=== PATIENT | female | born 1960 | race Caucasian/White ===

== ENCOUNTER → 2019-08-10 14:00 | Outpatient (CLI) | payer SELFPAY ==
[2019-08-10 17:38] LABS: Absolute Lymphocyte Count 2.52 X10^3/uL (0.83-4.51); Absolute Neutrophil Count 2.6 X10^3/uL (2.0-7.7); Basophil# 0.03 X10^3/uL; Basophil% 0.5 % (0-1); Eosinophil# 0.02 X10^3/uL; Eosinophils% 0.3 % (0-5); Hematocrit 42.9 % (37-47); Lymphocyte # 2.52 X10^3/ul (4.0); Lymphocyte % 43.5 % (19-41); Mean Corp Hgb Conc 32.6 g/dL (32-36); Mean Corpuscular Hgb 29.7 pg (27.0-32.0); Mean Corpuscular Volume 91.1 fL (81-99); Mean Platelet Vol. 9.5 fl (6.2-12.0); Monocyte# 0.59 X10^3/uL; Monocyte% 10.2 % (0-10); NRBC Flagged by Analyzer 0 % (0-5); Neutrophil # 2.62 X10^3/uL (2.7-7.7); Neutrophil % 45.3 % (47-70); Platelet Count 280 K/mm3 (150-450); RBC Distribution Width CV 13.2 % (11.6-14.6); RBC Distribution Width SD 43.6 fl (35.1-43.9); Red Blood Count 4.71 M/mm3 (4.2-5.4); White Blood Count 5.8 K/mm3 (4.4-11.0)
[2019-08-10 17:52] LABS: ALB/GLOB Ratio 1.2 RATIO (0.9-2.4); AST(SGOT) 14 U/L (15-37); Alanine Aminotransfer ALT/SGPT 22 U/L (13-56); Albumin, Serum 4.5 g/dL (3.2-5.0); Alkaline Phosphatase 55 U/L (45-117); Anion Gap 8 (5-15); BUN 13 mg/dL (7-18); BUN/Creat Ratio 14.1 RATIO (10-20); Calcium,Total 9.3 mg/dL (8.5-10.1); Chloride 102 mmol/L (98-107); Creatinine, Serum 0.92 mg/dL (0.55-1.02); EST Glomerular Filtration Rate 67 mL/min (>60); Est Glom Filt Rate - Afr Amer 81 mL/min (>60); Globulin 3.9 g/dL (2.2-4.2); Glucose 84 mg/dL (74-106); Potassium 3.3 mmol/L (3.5-5.1); Protein, Total 8.4 g/dL (6.4-8.2); Rheumatoid Factor < 10.0 IU/mL (<15); Sodium Level 139 mmol/L (136-145)
[2019-08-13 09:30] LABS: Hepatitis B Surface Antibody Non-Reactive; Hepatitis B Surface Antigen Non-Reactive (Nonreactive); Hepatitis C Antibody Non-Reactive (Nonreactive)
[2019-08-13 14:54] LABS: ANTINUCLEAR ANTIBODIES DIRECT Negative (Negative)
[2019-08-14 04:51] LABS: CCP IgG Antibodies 7 units (0-19)
== END ==
PROVIDERS: PCP Internal Medicine; Referring Provider Internal Medicine Rheumatology; Visit Provider Internal Medicine Rheumatology
DX: M06.4 Inflammatory polyarthropathy (principal); M47.892 Other spondylosis, cervical region; R51 Headache
CPT/HCPCS: 36415; 80053; 85025; 86038; 86200; 86431; 86706; 86803; 87340

== ENCOUNTER → 2019-11-14 08:43 | Outpatient (CLI) | payer SELFPAY ==
[2019-11-14 10:04] LABS: Absolute Neutrophil Count 6.1 X10^3/uL (2.0-7.7); Basophil# 0.04 X10^3/uL; Basophil% 0.4 % (0-1); Eosinophil# 0.06 X10^3/uL; Eosinophils% 0.6 % (0-5); Hematocrit 42.9 % (37-47); Hemoglobin 13.7 g/dL (12.0-15.0); Lymphocyte % 30.4 % (19-41); Mean Corp Hgb Conc 31.9 g/dL (32-36); Mean Corpuscular Hgb 28.8 pg (27.0-32.0); Mean Corpuscular Volume 90.1 fL (81-99); Mean Platelet Vol. 9.3 fl (6.2-12.0); Monocyte# 0.67 X10^3/uL; Monocyte% 6.8 % (0-10); NRBC Flagged by Analyzer 0 % (0-5); Neutrophil # 6.05 X10^3/uL (2.7-7.7); Neutrophil % 61.4 % (47-70); Platelet Count 293 K/mm3 (150-450); RBC Distribution Width CV 12.7 % (11.6-14.6); RBC Distribution Width SD 42.4 fl (35.1-43.9); Red Blood Count 4.76 M/mm3 (4.2-5.4); White Blood Count 9.9 K/mm3 (4.4-11.0)
[2019-11-14 10:10] LABS: ALB/GLOB Ratio 1.2 RATIO (0.9-2.4); AST(SGOT) 11 U/L (15-37); Alanine Aminotransfer ALT/SGPT 17 U/L (13-56); Alkaline Phosphatase 37 U/L (45-117); Anion Gap 3 (5-15); BUN 19 mg/dL (7-18); BUN/Creat Ratio 19.2 RATIO (10-20); Calcium,Total 8.9 mg/dL (8.5-10.1); Chloride 104 mmol/L (98-107); Creatinine, Serum 0.99 mg/dL (0.55-1.02); EST Glomerular Filtration Rate 62 mL/min (>60); Est Glom Filt Rate - Afr Amer 75 mL/min (>60); Globulin 3.3 g/dL (2.2-4.2); Glucose 79 mg/dL (74-106); Potassium 3.5 mmol/L (3.5-5.1); Protein, Total 7.3 g/dL (6.4-8.2); Sodium Level 139 mmol/L (136-145)
== END ==
PROVIDERS: PCP Internal Medicine; Referring Provider Internal Medicine Rheumatology; Visit Provider Internal Medicine Rheumatology
DX: M06.4 Inflammatory polyarthropathy (principal); M47.892 Other spondylosis, cervical region; R51 Headache
CPT/HCPCS: 36415; 80053; 85025

== ENCOUNTER → 2022-02-19 | Outpatient (CLI) | payer SELFPAY ==
[2022-02-19 16:20] LABS: Bacteria 0 SEEN /hpf (None Seen); Mucous, Urine 0 SEEN /hpf (<or=2+); Red Blood Cells-Urine 0 SEEN /hpf (0-5); Squamous Epithelial Cells - UA 0 SEEN /hpf (5-10); White Blood Cells 0 SEEN /hpf (0-5)
[2022-02-19 16:41] LABS: Color, Urine Yellow (Yellow); Glucose, Dipstick Normal (Normal); Ketone-Dipstick 15 mg/dl (Negative); Leukocyte Esterase-Dipstick Negative /ul (Negative); Nitrite-Dipstick Negative (Negative); Occult Blood-Urine Negative /ul (Negative); Protein-Dipstick Negative (Negative); Urine Bilirubin Dipstick Negative (Negative); Urine Clarity Clear (Clear); Urine Urobilinogen Normal (Normal)
== END | disposition home or self-care (01) ==
PROVIDERS: PCP Internal Medicine; Visit Provider Physician Assistant
DX: R30.0 Dysuria (principal)
CPT/HCPCS: 81001; 87086; 87088

== ENCOUNTER 2022-02-21 07:49 | Inpatient (IN) | payer OTHER, SELFPAY ==
[2022-02-21] VITALS (20 sets, daily range): BP systolic 80–121; BP diastolic 24–86; PULSE 75–104; RESP 14–21; TEMP 35.1–37.6; O2SAT 95–100; BMI 20.3
--- NOTE | 2022-02-21 08:03 | CT_ITS ---
STUDY: CT ABDOMEN AND PELVIS WITH CONTRAST REASON FOR EXAM: Female, 61 years old. Abdominal pain RADIATION DOSAGE (If Supplied By Facility): CTDIvol = ( 11.20 ) mGy, DLP = ( 428.30 ) mGycm TECHNIQUE: Transaxial images were obtained from the dome of the diaphragm to the symphysis pubis without oral contrast. IV 75mL Isovue-370 was administered. Sagittal and coronal images were reconstructed. Individualized dose optimization techniques were used for this CT. COMPARISON: None. FINDINGS: The visualized lung bases are unremarkable. The visualized portions of the heart are within normal limits. Hypoattenuated focus within the right hepatic lobe, too small to characterize. Normal gallbladder and extrahepatic biliary system. Normal spleen. Normal pancreas. Normal bilateral adrenal glands. Normal right kidney. Normal left kidney. Normal bilateral ureters. Normal visualized stomach. There are multiple small bowel loops which courses through the mid pelvic cavity which demonstrate callosal wall thickening. There is moderate diffuse diverticular disease of the sigmoid colon with marked associated long segment concentric mucosal wall thickening. There is a collection of extraluminal gas in the left mid hemipelvis medial to the inflamed sigmoid segment. There is extensive inflammatory stranding of mesenteric fat throughout the mid left pelvic cavity. There are associated small foci of extraluminal gas seen in the left subphrenic region, in the paulino hepatis, and in the hiatus. There is a small amount of free fluid in the right posterior pelvic cul-de-sac. Normal abdominal aorta. Normal inferior vena cava. Normal retroperitoneum. Normal urinary bladder. Reproductive structures are unremarkable. Normal abdominal wall. Mild multilevel degenerative change of the spine. CT/Abdomen/Pelvis W IV Cont ONLY IMPRESSION: 1. Perforated acute sigmoid colonic diverticulitis with associated secondary long segment mucosal wall edema of several small bowel loops which course through the mid pelvic cavity. 2. Additional foci of free intraperitoneal air seen throughout the left upper quadrant and within the paulino hepatis and hiatus. 3. Small amount of free fluid in the posterior pelvic cul-de-sac. 4. Hypoattenuated lesion in the right hepatic lobe which is too small to characterize but which likely represents a cyst versus hemangioma. Electronically Signed: Callum Ribeiro MD at 8:50 EST ,
--- NOTE | 2022-02-21 08:04 | ED.VIS.GI ---
HPI HPI - GI History of Present Illness Chief Complaint: Abd Pain Detail of Chief Complaint: Abdominal pain x1 week Informant: patient Narrative Narrative: Patient presents to the emergency department complaint of abdominal pain for a week. Patient states the pains been somewhat intermittent. She was seen couple days ago at urgent care and told she might be dehydrated after they checked a urine sample. Patient today drink some soda and on the way to the hospital vomited x1. She denies diarrhea. She denies blood in her stool or black tarry stool. Patient rates her pain an 8 out of 10 and the pain is in the lower abdomen. Patient tells me she has no medical history no prior abdominal surgeries. Prior similar symptoms: No PFSH PFSH Medical History (Updated 02/21/22 @ 09:[address] Jose Juan Butcher, ) Abdominal pain Medical History no medical history Home Medications NK 02/19/22 [History Last Taken Unknown] Allergy/AdvReac Type Severity Reaction Status Date / Time No Known Allergies Allergy Unverified 02/21/22 07:49 Surgical History no surgical history Social History Smoking Status: Never smoker ROS ROS ED Review of Systems ROS Unobtainable: other Constitutional Constitutional ED: Reports lethargy; Denies chills, fever(s), sweats or weight loss Eyes Eyes: Denies blurry vision, change in vision or diplopia ENT ENT ED: Denies rhinorrhea or sore throat Cardiovascular Cardiovascular: Denies chest pain, orthopnea or racing heartbeat Respiratory/Chest Respiratory/Chest: Denies cough, dyspnea, dyspnea on exertion, orthopnea or sputum Gastrointestinal Gastrointestinal: Reports abdominal pain, nausea and vomiting; Denies diarrhea Genitourinary Genitourinary ED: Denies dysuria, hematuria or urinary frequency Musculoskeletal Musculoskeletal: Denies arthralgias, back pain, myalgias or neck pain Integumentary Denies abscess, Abrasions or rash Neurologic Neurologic: Denies headache(s) or weakness Psychiatric Psychiatric: Denies anxiety, depression or suicidal thoughts Endocrine Endocrinology: Denies polydipsia, polyphagia or polyuria Hematologic/Lymphatic Hematologic/Lymphatic: Denies easy bleeding, easy bruising or lymphadenopathy Allergic/Immunologic Allergic/Immunologic ED: Denies mouth swelling, tongue swelling or urticaria EXAM Physical Exam Const Vital Signs: 02/21/22 07:50 02/21/22 08:10 02/21/22 08:36 Temperature 95.1 F L Temperature Source Temporal Pulse Rate 80 75 103 H Respiratory Rate 16 21 H 18 Blood Pressure 84/24 L 80/56 L 99/73 Blood Pressure Mean 44 64 81 Pulse Ox 100 100 98 Oxygen Delivery Method Room Air Room Air 02/21/22 08:39 02/21/22 08:40 02/21/22 08:46 Temperature 98.2 F Temperature Source Oral Pulse Rate 91 Respiratory Rate 20 H Blood Pressure 110/78 102/65 Blood Pressure Mean 88 77 Pulse Ox 100 Oxygen Delivery Method 02/21/22 08:52 Temperature Temperature Source Pulse Rate 99 Respiratory Rate 19 H Blood Pressure 114/62 Blood Pressure Mean 79 Pulse Ox 99 Oxygen Delivery Method Positive well nourished and well developed General Appearance ED: well developed and NAD HEENT Reports TM's clear and moist mucous membranes normocephalic and atraumatic; Negative for trauma or tenderness Tympanic Membrane ED: Yes TM's clear Eyes PERRL and EOMs intact bilaterally General Eye ED: Negative for pale conjunctiva or scleral icterus Neck no lymphadenopathy, supple and no JVD General: Negative for tenderness Chest Wall inspection of chest normal and palpation of chest normal Chest: Negative for tenderness Resp normal respiratory effort and clear to auscultation bilaterally Effort and Inspection: Negative for respiratory distress or pain with movement Auscultation: Negative for rhonchi, wheezes or diminished lung sounds Cardio regular rate, regular rhythm, S1 normal heart sound, S2 normal heart sound and no murmurs Peripheral Pulses: pulses 2+ throughout GI normal to inspection, nondistended, normoactive bowel sounds, soft to palpation, non-distended and no masses GI Narrative: Patient with diffuse tenderness palpation over the lower abdomen right lower quadrant and left lower quadrant. Patient has guarding. Patient has positive rebound. No rigidity noted. Exam consistent with acute abdomen. Back/Spine no CVA tenderness and no thoracic nor lumbar tenderness Extremity normal to inspection General Extremety ED: Negative for edema General Extremity: Negative for edema Neuro oriented x3, CN's II-XII intact bilaterally, no sensory deficits noted and gait normal Sensorium / Orientation: awake, alert, oriented to person, oriented to place and oriented to time Motor Exam: strength 5/5 throughout and strength abnormal Psych mental status grossly normal Skin no rashes or lesions noted and no wounds MDM MDM MDM Narrative Medical decision making narrative: IV line established on arrival. Patient was ordered a liter mostly of fluid bolus. I immediately ordered a CT scan of the abdomen and pelvis with IV contrast. On my initial interpretation it appears that patient has inflammatory changes to the left side of the descending colon with suspected perforation of the bowel. Patient was started on Zosyn. I did discuss case with general surgeon on-call who also reviewed the CT scan. We will continue with fluid boluses as her blood pressure is marginal. Patient will likely require OR intervention. Patient tells me that she has had diverticulitis in the past. Lab work-up consistent with an elevated white count of 13.3. Chemistries unremarkable. Lactate still pending. Radiology agreed with CT interpretation and they note acute diverticulitis with perforated bowel and bowel wall edema. Case was once again discussed with general surgeon on-call Dr. Indra Villar who will evaluate patient in the ER for surgical intervention. Lab Data Attestation: I reviewed the patient's lab results. Labs: Laboratory Results - last 24 hr 02/21/22 02/21/22 02/21/22 08:00 08:00 08:00 WBC 13.3 H RBC 4.16 L Hgb 12.1 Hct 36.8 L MCV 88.5 MCH 29.1 MCHC 32.9 RDW Std Deviation 40.3 RDW Coeff of Jocelin 12.4 Plt Count 327 MPV 9.4 Immature Gran % (Auto) 0.900 Neut % (Auto) 76.9 H Lymph % (Auto) 11.8 L [place] % (Auto) 10.2 H Eos % (Auto) 0.0 Baso % (Auto) 0.2 Absolute Neuts (auto) 10.2 H Absolute Lymphs (auto) 1.56 Nucleated RBC % 0 Sodium 133 L Potassium 3.5 Chloride 99 Carbon Dioxide 25.0 Anion Gap 9 BUN 11 Creatinine 0.93 Estim Creat Clear Calc 57.13 Est GFR (MDRD) Af Amer 79 Est GFR (MDRD) Non-Af 65 BUN/Creatinine Ratio 11.8 Glucose 127 H Lactic Acid 1.2 Calcium 8.5 Total Bilirubin 0.90 AST 11 L ALT 15 Alkaline Phosphatase 53 Total Protein 7.3 Albumin 3.5 Globulin 3.8 Albumin/Globulin Ratio 0.9 Radiography Diagnostic Testing: Clinical Impression(s) from Imaging Studies Abdomen/Pelvis CT 02/21/22 08:03 IMPRESSION: 1. Perforated acute sigmoid colonic diverticulitis with associated secondary long segment mucosal wall edema of several small bowel loops which course through the mid pelvic cavity. 2. Additional foci of free intraperitoneal air seen throughout the left upper quadrant and within the paulino hepatis and hiatus. 3. Small amount of free fluid in the posterior pelvic cul-de-sac. 4. Hypoattenuated lesion in the right hepatic lobe which is too small to characterize but which likely represents a cyst versus hemangioma. Electronically Signed: Callum Ribeiro MD at 8:50 EST , EKG Initial EKG: Attestation: I personally reviewed and interpreted this EKG as follows: Comments: Sinus rhythm with nonspecific ST changes with a rate of 102 bpm Discharge Plan Dx/Rx/DC Orders Clinical Impression: Abdominal pain, Acute diverticulitis, Bowel perforation, Acute hypotension, Leukocytosis Disposition Disposition: Acute Care Hospital [facility]
[2022-02-21] MEDS: Ondansetron 4 MG/2 ML Vial IV (08:08)
[2022-02-21] MEDS: 0.9% Normal Saline 1,000 ML 1000 ML IV (08:09)
[2022-02-21] MEDS: fentaNYL 100 MCG/2 ML Ampul 50 MCG IV (08:09)
[2022-02-21 08:16] LABS: Absolute Lymphocyte Count 1.56 X10^3/uL (0.83-4.51); Absolute Neutrophil Count 10.2 X10^3/uL (2.0-7.7); Basophil# 0.02 X10^3/uL; Basophil% 0.2 % (0-1); Hematocrit 36.8 % (37-47); Hemoglobin 12.1 g/dL (12.0-15.0); Lymphocyte # 1.56 X10^3/ul (0.83-4.51); Lymphocyte % 11.8 % (19-41); Mean Corp Hgb Conc 32.9 g/dL (32-36); Mean Corpuscular Hgb 29.1 pg (27.0-32.0); Mean Corpuscular Volume 88.5 fL (81-99); Mean Platelet Vol. 9.4 fl (6.2-12.0); Monocyte# 1.36 X10^3/uL; Monocyte% 10.2 % (0-10); NRBC Flagged by Analyzer 0 % (0-5); Neutrophil # 10.21 X10^3/uL (2.7-7.7); Neutrophil % 76.9 % (47-70); Platelet Count 327 K/mm3 (150-450); RBC Distribution Width CV 12.4 % (11.6-14.6); RBC Distribution Width SD 40.3 fl (35.1-43.9); Red Blood Count 4.16 M/mm3 (4.2-5.4); White Blood Count 13.3 K/mm3 (4.4-11.0)
[2022-02-21 08:29] LABS: ALB/GLOB Ratio 0.9 RATIO (0.9-2.4); AST(SGOT) 11 U/L (15-37); Alanine Aminotransfer ALT/SGPT 15 U/L (13-56); Albumin, Serum 3.5 g/dL (3.2-5.0); Alkaline Phosphatase 53 U/L (45-117); Anion Gap 9 (5-15); BUN 11 mg/dL (7-18); BUN/Creat Ratio 11.8 RATIO (10-20); Calcium,Total 8.5 mg/dL (8.5-10.1); Chloride 99 mmol/L (98-107); Creatinine, Serum 0.93 mg/dL (0.55-1.02); EST Glomerular Filtration Rate 65 mL/min (>60); Est Glom Filt Rate - Afr Amer 79 mL/min (>60); Estimated Creatinine Clearance 57.13 ml/min; Globulin 3.8 g/dL (2.2-4.2); Glucose 127 mg/dL (74-106); Potassium 3.5 mmol/L (3.5-5.1); Protein, Total 7.3 g/dL (6.4-8.2); Sodium Level 133 mmol/L (136-145)
[2022-02-21 08:35] LABS: Lactic Acid 1.2 mmol/L (0.4-1.9)
--- NOTE | 2022-02-21 08:39 | EKG12_ITS ---
Test Reason : abdominal pain Blood Pressure : / mmHG Vent. Rate : 102 BPM Atrial Rate : 102 BPM P-R Int : 164 ms QRS Dur : 080 ms QT Int : 348 ms P-R-T Axes : 083 088 -09 degrees QTc Int : 453 ms Sinus tachycardia Nonspecific ST and T wave abnormality Abnormal ECG Confirmed by CASSIA SMITH, ELSIE ([id number]), photo editor JOSIE PANG ([id number]) on 02/23/2022 1:10:24 PM Referred By: Confirmed By:ELSIE ANTONY MD
--- NOTE | 2022-02-21 08:44 | NURSING ---
NO OLD EKGS
[2022-02-21] MEDS: HYDROmorphone 0.5 MG/0.5 ML SYRINGE IV (08:51)
[2022-02-21] MEDS: 0.9% Normal Saline 1,000 ML 999 ML IV (08:51)
--- NOTE | 2022-02-21 09:16 | NURSING ---
MED SURG AFTER SURGERY [facility] [place] PAIN, ACUTE DIVERTICULITIS, BOWEL PERFORATIOH, HYPOTENSION
--- NOTE | 2022-02-21 09:20 | HP.PCM.SX_ITS ---
HPI - General HPI Narrative HELGA ALMANZA, is a 61 F who presents with abdominal pain. The patient reports the abdominal pain has been going on for several days. Patient says that she did have some chills and possible fever today and did vomit. She has had diverticulitis in the past. Her last colonoscopy was 9 years ago was normal. Patient states pain is in the lower abdomen and does not radiate. PFSH Medical History no medical history Home Medications NK 02/19/22 [History Last Taken Unknown] Allergy/AdvReac Type Severity Reaction Status Date / Time No Known Allergies Allergy Unverified 02/21/22 07:49 Surgical History no surgical history Social History Smoking Status: Never smoker ROS Constitutional Constitutional: Reports anorexia, chills and fever(s); Denies fatigue or headache(s) Eyes Eyes: Denies blurry vision ENT HEENT: Denies abnormal hearing Cardiovascular Cardiovascular: Denies chest pain Respiratory/Chest Respiratory/Chest: Denies cough or dyspnea Gastrointestinal Gastrointestinal: Reports abdominal pain, diarrhea, nausea and vomiting; Denies hematemesis, hematochezia or melena Genitourinary Genitourinary: Denies change in urinary stream Musculoskeletal Musculoskeletal: Denies abnormal gait Integumentary Integumentary: Denies new lesions Neurologic Neurologic: Denies abnormal gait Psychiatric Psychiatric: Denies anxiety Endocrine Endocrinology: Denies heat intolerance Hematologic/Lymphatic Hematologic/Lymphatic: Denies easy bleeding Vital Signs Vital Signs Vital Signs: 02/21/22 07:50 02/21/22 08:10 02/21/22 08:36 Temperature 95.1 F L Temperature Source Temporal Pulse Rate 80 75 103 H Respiratory Rate 16 21 H 18 Blood Pressure 84/24 L 80/56 L 99/73 Blood Pressure Mean 44 64 81 Pulse Ox 100 100 98 Oxygen Delivery Method Room Air Room Air 02/21/22 08:39 02/21/22 08:40 02/21/22 08:46 Temperature 98.2 F Temperature Source Oral Pulse Rate 91 Respiratory Rate 20 H Blood Pressure 110/78 102/65 Blood Pressure Mean 88 77 Pulse Ox 100 Oxygen Delivery Method 02/21/22 08:52 Temperature Temperature Source Pulse Rate 99 Respiratory Rate 19 H Blood Pressure 114/62 Blood Pressure Mean 79 Pulse Ox 99 Oxygen Delivery Method Weight Weight: 122 lb 8 oz Body Mass Index (BMI) 20.3 Physical Exam Const oriented x3 and no apparent distress Resp normal respiratory effort and clear to auscultation bilaterally Cardio regular rate and regular rhythm GI soft to palpation Inspection: Negative for abdominal distention Palpation: tender LLQ and RLQ Extremity normal to inspection Results Lab / Micro Data Result Diagrams: 02/21/22 08:00 02/21/22 08:00 Labs: Laboratory Results - last 24 hr 02/21/22 08:00: WBC 13.3 H, RBC 4.16 L, Hgb 12.1, Hct 36.8 L, MCV 88.5, MCH 29.1, MCHC 32.9, RDW Std Deviation 40.3, RDW Coeff of Jocelin 12.4, Plt Count 327, MPV 9.4, Immature Gran % (Auto) 0.900, Neut % (Auto) 76.9 H, Lymph % (Auto) 11.8 L, [place] % (Auto) 10.2 H, Eos % (Auto) 0.0, Baso % (Auto) 0.2, Absolute Neuts (auto) 10.2 H, Absolute Lymphs (auto) 1.56, Nucleated RBC % 0 02/21/22 08:00: Sodium 133 L, Potassium 3.5, Chloride 99, Carbon Dioxide 25.0, Anion Gap 9, BUN 11, Creatinine 0.93, Estim Creat Clear Calc 57.13, Est GFR (MDRD) Af Amer 79, Est GFR (MDRD) Non-Af 65, BUN/Creatinine Ratio 11.8, Glucose 127 H, Calcium 8.5, Total Bilirubin 0.90, AST 11 L, ALT 15, Alkaline Phosphatase 53, Total Protein 7.3, Albumin 3.5, Globulin 3.8, Albumin/Globulin Ratio 0.9 02/21/22 08:00: Lactic Acid 1.2 Radiology Impression Abdomen/Pelvis CT 02/21/22 08:03 IMPRESSION: 1. Perforated acute sigmoid colonic diverticulitis with associated secondary long segment mucosal wall edema of several small bowel loops which course through the mid pelvic cavity. 2. Additional foci of free intraperitoneal air seen throughout the left upper quadrant and within the paulino hepatis and hiatus. 3. Small amount of free fluid in the posterior pelvic cul-de-sac. 4. Hypoattenuated lesion in the right hepatic lobe which is too small to characterize but which likely represents a cyst versus hemangioma. Electronically Signed: Callum Ribeiro MD at 8:50 EST , Assessment & Plan Assessment/Plan (1) Diverticulitis of colon with perforation: PLAN: The patient has lower abdominal pain and CT shows diverticulitis of the sigmoid colon with perforation. There is fluid and free air in the abdomen. I discussed this with her in detail. I recommended laparoscopic sigmoid colectomy with possible colostomy. I discussed the risks of the procedure such as bleeding, infection, injury to surrounding organs such as the bowel, bladder, ureter. I also discussed the possibility of having to place a colostomy if anastomosis is not possible. I also discussed the increased risk of anastomotic leak due to no bowel prep or antibiotic prep. Patient understands the risks and consents for laparoscopic possible open sigmoid colectomy with possible colostomy. I will call the OR team and the patient has been given a fluid bolus and started on IV antibiotics. Indra Melendez MD Pager: [facility] [address] [place] [address], [address] [place] [address] Office:
--- NOTE | 2022-02-21 10:25 | COL_PTH ---
PATIENT: HELGA ALMANZA LOC: MS2 U#:[id number] AGE/SX: 61/F ROOM: [id number] RE02/21/[address]: Dr. Indra Melendez MD : 1960 BED: 1 DIS: 02/26/2022 SPEC #: [id number] RECD: 02/23/22 07:26 STATUS: MAYA REVianney #: [id number] ESTRELLA: 02/21/22 10:[address]: Indra Melendez DEPT: SURGICAL PATHOLOGY RECD BY: Xiomara Viveros ENTERED: 02/23/22 09:40 SP TYPE: COLON OTHR DR: MD Dr. Francis Chino DO Dr. Paul Nielsen, MD Tissues: A - Colon, NOS B - Colon Donuts Procedures: Surgery Specimen Level III Surgery Specimen Level V HEADER OPERATION: Laparotomy, sigmoid colectomy PRE-OP DIAGNOSIS: Diverticulitis of colon with perforation TISSUE SUBMITTED: A ? Sigmoid colon (suture alexandre proximal margin), B ? Rectal donuts MICROSCOPIC DIAGNOSIS A. Sigmoid colon, segmental colectomy: Diverticular disease of colon with focal rupture and associated pericolic abscess. Acute serositis. One out of one lymph node with no pathologic change. B. Rectal donuts, excisions: Fragments of colonic mucosa with no pathologic change. See comment. AM:joelle 02/25/2022 COMMENT B. No distinct gross perforation through to the serosal surface is identified. Clinical correlation is suggested. MICROSCOPIC DESCRIPTION Slides are reviewed. GROSS DESCRIPTION A - Received in fixative is one container labeled with the patient's name and designated sigmoid colon. The specimen consists of a segment of bowel measuring 18 cm in length and surrounded by shiny, fibroadipose tissue. No gross perforations are evident. Serial sections reveal multiple diverticula with no distinct gross perforation is identified. Clerical Transcriber sections are submitted in six cassettes as follows: 15 ? diverticula with adjacent tissue, 6 ? presumed lymph node. B - Received in fixative is one container labeled with the patient's name and designated rectal donuts. The specimen consists of two mucosal donuts. One mucosal donut measures 1.5 cm in diameter and 0.8 cm in length. This donut is inked in black ink. No gross lesions are identified. The second mucosal donut measures 1.6 cm in diameter and 1.7 cm in length. No lesions are identified. Clerical Transcriber sections from both donuts are submitted in one cassette. / AM:joelle 02/24/2022 TC:2 CPT: 53025, 26475
[2022-02-21] MEDS: Lactated Ringers 1,000 ML 15 ML IV ×2 (10:45→11:46)
--- NOTE | 2022-02-21 13:23 | PCM.OPRPT ---
Report of Operation Date of Procedure: 02/21/22 Pre-Operative Diagnosis: Perforated sigmoid diverticulitis Post-Operative Diagnosis: Same Surgery/Procedure Performed:: 1. Laparoscopic converted to open sigmoid colectomy with anastomosis 2. Takedown of splenic flexure Specimen's removed: Sigmoid colon with suture alexandre from the proximal margin Description of Procedure: Patient was brought back to the operating room and general anesthesia was induced. Cook catheter was placed and the rectum was irrigated with a saline and Betadine mixture. Next the abdomen and perineal area were prepped and draped in usual sterile fashion. An incision was made superior the umbilicus and deepened the fascia which was elevated and incised. Finger sweep was performed and a port was placed into the abdomen and the abdomen was insufflated 15 mmHg. A 5 mm port was placed under direct visualization just to the right of this and a 12 mm port was placed in the right lower quadrant. Patient was placed in Trendelenburg position. There is purulent drainage in the abdomen which was suctioned. The small bowel was densely adherent to the sigmoid colon and I was unable to visualize what I needed to laparoscopically. Next we converted to open. The midline incision was lengthened inferiorly around the umbilicus and down to the suprapubic area. The fascia was elevated and incised and a wound protector was placed. The abdomen is irrigated and suctioned dry and the small bowel was finger fractured away from the sigmoid colon and retracted superiorly and out of the way. The sigmoid colon was taken down from its lateral attachments and the ureter was identified on the left. It was spared out of the way and then the colon was dissected medially. A window was made in the mesentery and the round stapler was used to take down the sigmoid rectum junction and divided. LigaSure was used to take down the mesentery to the sigmoid colon until the inflamed area was removed and proximal to it the colon was divided using another firing of the curved stapler. The perforation was evident on the sigmoid colon and it was marked proximally with a suture and sent for pathology. Next the abdomen was irrigated and suctioned dry once more. The distal descending colon was unable to reach the pelvis. The lateral attachments to the descending colon and splenic flexure were taken down with electrocautery under direct visualization. The splenic flexure was mobilized. This allowed the descending colon to reach the pelvis with no tension. Next the staple line was taken off of the distal descending colon using scissors and then a sizer was used to size the distal colon. Next a pursestring 0 Prolene suture was used on the distal colon and then the 29 EEA stapler anvil was placed into the distal colon and the pursestring was tied tight. Next serial dilators were used in the rectal area and then the 29 EEA stapler was placed through the anus and into the rectum and then the stapler point was brought out of the anterior rectum. The distal descending colon was attached to the stapler point and it was closed and fired. The stapler was then loosened and removed. The pelvis was filled with fluid and then a leak test was performed. There was no air leak. There was an area of solid mucosal edge on the anterior edge of the anastomosis. This area was imbricated using interrupted 3-0 silk sutures. The abdomen and pelvis were irrigated and suctioned dry and the bowel was returned into the abdomen and the omentum was draped over the small bowel and over the pelvis. The fascia was closed with #1 PDS suture starting from the top and bottom and running and meeting in the middle. The subcutaneous tissue was irrigated and suctioned dry and the skin was injected with local anesthetic. The skin was closed with interrupted 4-0 Monocryl sutures. The right lower quadrant fascia was closed with 0 Vicryl in an interrupted fashion. The small port sites were injected with local anesthetic and closed with interrupted 4-0 Monocryl suture. Steri-Strips were placed over all of the incisions and bandages were applied. Patient was then awoken and taken to PACU in stable condition with a Cook in place. Admit VTE Documentation VTE Present on Admission: Yes
[2022-02-21] MEDS: Ketorolac 15 MG/ML Vial IV ×2 (14:24→22:21)
[2022-02-21] MEDS: 0.9% Saline Lock 10 ML Syringe IV ×4 (14:25→22:21)
[2022-02-21] MEDS: 0.9% Normal Saline 1,000 ML 125 ML IV (16:28)
[2022-02-21] MEDS: Morphine 2 MG/ML Syringe IV (16:38)
[2022-02-22] VITALS (12 sets, daily range): BP systolic 97–122; BP diastolic 48–70; PULSE 80–139; RESP 16–18; TEMP 36.6–37.6; O2SAT 94–98
[2022-02-22] MEDS: 0.9% Normal Saline 1,000 ML 125 ML IV ×3 (00:25→15:51)
--- NOTE | 2022-02-22 01:28 | NURSING ---
Patient ambulated one lap in hallway with INFUSION RN. Tolerated well.
[2022-02-22] MEDS: Morphine 2 MG/ML Syringe IV ×3 (01:52→18:55)
[2022-02-22] MEDS: 0.9% Saline Lock 10 ML Syringe IV ×3 (01:53→12:17)
[2022-02-22 06:26] LABS: Absolute Lymphocyte Count 1.19 X10^3/uL (0.83-4.51); Absolute Neutrophil Count 6.8 X10^3/uL (2.0-7.7); Basophil# 0.03 X10^3/uL; Basophil% 0.3 % (0-1); Hematocrit 31.5 % (37-47); Hemoglobin 10.7 g/dL (12.0-15.0); Lymphocyte # 1.19 X10^3/ul (0.83-4.51); Lymphocyte % 13.6 % (19-41); Mean Corpuscular Hgb 30.4 pg (27.0-32.0); Mean Corpuscular Volume 89.5 fL (81-99); Mean Platelet Vol. 9.9 fl (6.2-12.0); Monocyte# 0.67 X10^3/uL; Monocyte% 7.7 % (0-10); NRBC Flagged by Analyzer 0 % (0-5); Neutrophil # 6.83 X10^3/uL (2.7-7.7); Neutrophil % 78.1 % (47-70); Platelet Count 252 K/mm3 (150-450); RBC Distribution Width CV 12.8 % (11.6-14.6); RBC Distribution Width SD 41.8 fl (35.1-43.9); Red Blood Count 3.52 M/mm3 (4.2-5.4); White Blood Count 8.8 K/mm3 (4.4-11.0)
[2022-02-22 06:54] LABS: Anion Gap 7 (5-15); BUN 7 mg/dL (7-18); BUN/Creat Ratio 11.5 RATIO (10-20); Calcium,Total 7.7 mg/dL (8.5-10.1); Chloride 108 mmol/L (98-107); Creatinine, Serum 0.61 mg/dL (0.55-1.02); EST Glomerular Filtration Rate 106 mL/min (>60); Est Glom Filt Rate - Afr Amer 129 mL/min (>60); Glucose 81 mg/dL (74-106); Magnesium 1.5 mg/dL (1.6-2.6); Phosphorus 2.7 mg/dL (2.5-4.9); Potassium 3.7 mmol/L (3.5-5.1); Sodium Level 137 mmol/L (136-145)
--- NOTE | 2022-02-22 07:25 | PN.SURG_ITS ---
Subjective Subjective Patient reports that her pain is controlled. She denies nausea and vomiting at this time. No flatus yet. Objective Data Objective Data Vital Signs: Vital Signs Temp Pulse Resp BP Pulse Ox O2 Del Method 98.4 F 89 18 101/49 L 97 Room Air 02/22/22 05:18 02/22/22 05:18 02/22/22 05:18 02/22/22 05:18 02/22/22 05:18 02/22/22 05:18 Oxygen Delivery Method Room Air Weight: 122 lb 8 oz Body Mass Index (BMI) 20.3 Intake & Output: Intake and Output for Last 24 Hours 02/20/22 02/21/22 02/22/22 23:59 23:59 23:59 Intake Total 3267.25 / 3267.25 1043.75 / 1043.75 Output Total 690 / 1090 700 / 700 Balance 2577.25 / 2177.25 343.75 / 343.75 Lab / Micro Data Result Diagrams: 02/22/22 04:46 02/22/22 04:46 Labs: Laboratory Results - last 24 hr 02/21/22 08:00: WBC 13.3 H, RBC 4.16 L, Hgb 12.1, Hct 36.8 L, MCV 88.5, MCH 29.1, MCHC 32.9, RDW Std Deviation 40.3, RDW Coeff of Jocelin 12.4, Plt Count 327, MPV 9.4, Immature Gran % (Auto) 0.900, Neut % (Auto) 76.9 H, Lymph % (Auto) 11.8 L, [place] % (Auto) 10.2 H, Eos % (Auto) 0.0, Baso % (Auto) 0.2, Absolute Neuts (auto) 10.2 H, Absolute Lymphs (auto) 1.56, Nucleated RBC % 0 02/21/22 08:00: Sodium 133 L, Potassium 3.5, Chloride 99, Carbon Dioxide 25.0, Anion Gap 9, BUN 11, Creatinine 0.93, Estim Creat Clear Calc 57.13, Est GFR (MDRD) Af Amer 79, Est GFR (MDRD) Non-Af 65, BUN/Creatinine Ratio 11.8, Glucose 127 H, Calcium 8.5, Total Bilirubin 0.90, AST 11 L, ALT 15, Alkaline Phosphatase 53, Total Protein 7.3, Albumin 3.5, Globulin 3.8, Albumin/Globulin Ratio 0.9 02/21/22 08:00: Lactic Acid 1.2 02/22/22 04:46: WBC 8.8, RBC 3.52 L, Hgb 10.7 L, Hct 31.5 L, MCV 89.5, MCH 30.4, MCHC 34.0, RDW Std Deviation 41.8, RDW Coeff of Jocelin 12.8, Plt Count 252, MPV 9.9, Immature Gran % (Auto) 0.300, Neut % (Auto) 78.1 H, Lymph % (Auto) 13.6 L, [place] % (Auto) 7.7, Eos % (Auto) 0.0, Baso % (Auto) 0.3, Absolute Neuts (auto) 6.8, Absolute Lymphs (auto) 1.19, Nucleated RBC % 0 02/22/22 04:46: Sodium 137, Potassium 3.7, Chloride 108 H, Carbon Dioxide 22.0, Anion Gap 7, BUN 7, Creatinine 0.61, Estim Creat Clear Calc 87.10, Est GFR (MDRD) Af Amer 129, Est GFR (MDRD) Non-Af 106, BUN/Creatinine Ratio 11.5, Glucose 81, Calcium 7.7 L, Phosphorus 2.7, Magnesium 1.5 L Radiography Diagnostic Testing: Radiology Impression Abdomen/Pelvis CT 02/21/22 08:03 IMPRESSION: 1. Perforated acute sigmoid colonic diverticulitis with associated secondary long segment mucosal wall edema of several small bowel loops which course through the mid pelvic cavity. 2. Additional foci of free intraperitoneal air seen throughout the left upper quadrant and within the paulnio hepatis and hiatus. 3. Small amount of free fluid in the posterior pelvic cul-de-sac. 4. Hypoattenuated lesion in the right hepatic lobe which is too small to characterize but which likely represents a cyst versus hemangioma. Electronically Signed: Callum Ribeiro MD at 8:50 EST , Physical Exam Const oriented x3 and no apparent distress Resp normal respiratory effort GI soft to palpation Palpation: tender Extremity normal to inspection Assessment & Plan Assessment/Plan (1) Diverticulitis of colon with perforation: PLAN: The patient is postoperative day 1 from a sigmoid colectomy for perforation. Continue antibiotics and n.p.o. with IV fluids. Advised ambulation. I will start Lovenox today as well as a PPI. Patient will also co ntinue antibiotics. Indra Melendez MD Pager: [facility] [address] [place] [address], [address] [place] [address] Office:
[2022-02-22] MEDS: Ketorolac 15 MG/ML Vial IV (08:15)
[2022-02-22] MEDS: Enoxaparin 40 MG/0.4 ML Syringe SC (09:34)
--- NOTE | 2022-02-22 19:12 | EKGRS_ITS ---
Test Reason : TACHYCARDIA Blood Pressure : / mmHG Vent. Rate : 097 BPM Atrial Rate : 097 BPM P-R Int : 108 ms QRS Dur : 076 ms QT Int : 350 ms P-R-T Axes : 082 077 015 degrees QTc Int : 444 ms Sinus rhythm with short KS with Premature supraventricular complexes Confirmed by CASSIA SMITH, ELSIE ([id number]), society editor JOSIE PANG ([id number]) on 02/24/2022 10:47:07 AM Referred By: SERGEY Confirmed By:ELSIE ANTONY MD
--- NOTE | 2022-02-22 19:13 | EKG12_ITS ---
Test Reason : TACHYCARIDA Blood Pressure : / mmHG Vent. Rate : 117 BPM Atrial Rate : 117 BPM P-R Int : 134 ms QRS Dur : 076 ms QT Int : 274 ms P-R-T Axes : 082 080 014 degrees QTc Int : 382 ms Sinus tachycardia Otherwise normal ECG Confirmed by CASSIA SMITH, ELSIE ([id number]), pictures editor JOSIE PANG ([id number]) on 02/25/2022 10:17:45 AM Referred By: LAUREL Confirmed By:ELSIE ANTONY MD
--- NOTE | 2022-02-22 19:14 | EKG12_ITS ---
Test Reason : TACHYCARIDA Blood Pressure : / mmHG Vent. Rate : 170 BPM Atrial Rate : 178 BPM P-R Int : 000 ms QRS Dur : 072 ms QT Int : 262 ms P-R-T Axes : 000 083 -49 degrees QTc Int : 440 ms Atrial fibrillation Nonspecific T wave abnormality Abnormal ECG Confirmed by CASSIA SMITH, ELSIE ([id number]), videotape editor JOSIE PANG ([id number]) on 02/25/2022 10:17:55 AM Referred By: LAUREL Confirmed By:ELSIE ANTONY MD
[2022-02-22] MEDS: Metoprolol Tartrate 5 MG/5 ML Vial IV (19:26)
[2022-02-22 19:54] LABS: Troponin-I HS 13 pg/mL (3.0-54.0)
--- NOTE | 2022-02-22 20:37 | PCM.HP.STD ---
HPI - General General Date of Admission: 02/21/22 Date of Service: 02/22/22 Chief Complaint: Medical consult for tachycardia HPI Narrative HELGA AMLANZA, is a 61 F who presents to the emergency room on February 21 and diagnosed with diverticulitis status post surgery for perforated diverticulitis. On the floor patient remains n.p.o. but developed a heart rate of 160 and the hospitalist service was called for consult. Initial troponin enzyme was negative and EKG showed sinus tachycardia with no ST elevations. Patient was given IV Lopressor 5 mg x 1 and continues to be supported with IV fluids at a rate of 125 cc/h. Upon my evaluation patient denies any palpitations or lightheadedness. PFSH Medical History no medical history Home Medications NK 02/19/22 [History Last Taken Unknown] Allergy/AdvReac Type Severity Reaction Status Date / Time No Known Allergies Allergy Unverified 02/21/22 07:49 Surgical History no surgical history Social History Smoking Status: Never smoker ROS Constitutional Constitutional: Reports weakness; Denies fever(s) Eyes Eyes: Denies blurry vision ENT HEENT: Denies abnormal hearing Cardiovascular Cardiovascular: Denies chest pain Respiratory/Chest Respiratory/Chest: Denies cough Gastrointestinal Gastrointestinal: Reports abdominal pain Genitourinary Genitourinary: Denies dysuria Psychiatric Psychiatric: Denies anxiety Vital Signs Vital Signs Vital Signs: 02/21/22 20:51 02/21/22 21:09 02/21/22 21:11 Temperature 98.1 F Temperature Source Oral Pulse Rate 84 Pulse Strength Normal (2+) Respiratory Rate 18 Respiratory Effort Normal Non-Labored Respiratory Depth Shallow Blood Pressure 111/60 Blood Pressure [BP] Blood Pressure Mean 77 Blood Pressure Mean [BP] Blood Pressure Source Blood Pressure Source [BP] Blood Pressure Position Blood Pressure Position [BP] Blood Pressure Location Blood Pressure Location [BP] Pulse Ox 97 Oxygen Delivery Method Room Air Room Air 02/22/22 01:31 02/22/22 05:18 02/22/22 08:02 Temperature 98.8 F 98.4 F 99.7 F H Temperature Source Oral Oral Oral Pulse Rate 85 89 84 Pulse Strength Respiratory Rate 18 18 18 Respiratory Effort Respiratory Depth Blood Pressure 122/69 H 101/49 L 110/48 L Blood Pressure [BP] Blood Pressure Mean 86 66 68 Blood Pressure Mean [BP] Blood Pressure Source Monitor Blood Pressure Source [BP] Blood Pressure Position Semi-Fowlers Blood Pressure Position [BP] Blood Pressure Location Right Arm Blood Pressure Location [BP] Pulse Ox 96 97 98 Oxygen Delivery Method Room Air Room Air Room Air 02/22/22 08:03 02/22/22 10:00 02/22/22 14:00 Temperature 97.9 F Temperature Source Oral Pulse Rate 111 H Pulse Strength Normal (2+) Respiratory Rate 18 18 Respiratory Effort Normal Non-Labored Respiratory Depth Blood Pressure 118/52 L Blood Pressure [BP] Blood Pressure Mean 74 Blood Pressure Mean [BP] Blood Pressure Source Blood Pressure Source [BP] Blood Pressure Position Blood Pressure Position [BP] Blood Pressure Location Blood Pressure Location [BP] Pulse Ox 98 Oxygen Delivery Method Room Air Room Air 02/22/22 14:04 02/22/22 17:17 02/22/22 19:26 Temperature 98.9 F Temperature Source Oral Pulse Rate 80 124 H Pulse Strength Respiratory Rate 18 18 Respiratory Effort Normal Non-Labored Respiratory Depth Blood Pressure 118/70 118/56 L Blood Pressure [BP] Blood Pressure Mean 86 Blood Pressure Mean [BP] Blood Pressure Source Monitor Blood Pressure Source [BP] Blood Pressure Position Semi-Fowlers Blood Pressure Position [BP] Blood Pressure Location Right Arm Blood Pressure Location [BP] Pulse Ox 98 Oxygen Delivery Method Room Air Room Air 02/22/22 19:33 02/22/22 20:19 Temperature 99.5 F H Temperature Source Oral Pulse Rate 95 105 H Pulse Strength Respiratory Rate 18 Respiratory Effort Respiratory Depth Blood Pressure 97/66 Blood Pressure [BP] 100/64 Blood Pressure Mean 76 Blood Pressure Mean [BP] 76 Blood Pressure Source Monitor Blood Pressure Source [BP] Monitor Blood Pressure Position Semi-Fowlers Blood Pressure Position [BP] Semi-Fowlers Blood Pressure Location Right Arm Blood Pressure Location [BP] Right Arm Pulse Ox 94 96 Oxygen Delivery Method Room Air Weight Weight: 122 lb 8 oz Body Mass Index (BMI) 20.3 Physical Exam Const alert General Appearance: cooperative and well developed HEENT normocephalic and head/scalp atraumatic Eyes PERRL Lymph Lymphatic: no lymphadenopathy noted Resp normal respiratory effort Cardio regular rhythm, S1 normal heart sound and S2 normal heart sound Rate: tachycardic GI GI Narrative: diminished bowel sounds Skin General Skin Exam: no breakdown Results Lab / Micro Data Result Diagrams: 02/22/22 04:46 02/22/22 04:46 Labs: Laboratory Results - last 24 hr 02/22/22 04:46: WBC 8.8, RBC 3.52 L, Hgb 10.7 L, Hct 31.5 L, MCV 89.5, MCH 30.4, MCHC 34.0, RDW Std Deviation 41.8, RDW Coeff of Jocelni 12.8, Plt Count 252, MPV 9.9, Immature Gran % (Auto) 0.300, Neut % (Auto) 78.1 H, Lymph % (Auto) 13.6 L, [place] % (Auto) 7.7, Eos % (Auto) 0.0, Baso % (Auto) 0.3, Absolute Neuts (auto) 6.8, Absolute Lymphs (auto) 1.19, Nucleated RBC % 0 02/22/22 04:46: Sodium 137, Potassium 3.7, Chloride 108 H, Carbon Dioxide 22.0, Anion Gap 7, BUN 7, Creatinine 0.61, Estim Creat Clear Calc 87.10, Est GFR (MDRD) Af Amer 129, Est GFR (MDRD) Non-Af 106, BUN/Creatinine Ratio 11.5, Glucose 81, Calcium 7.7 L, Phosphorus 2.7, Magnesium 1.5 L 02/22/22 19:25: Troponin I High Sens 13 Assessment & Plan Assessment/Plan (1) Diverticulitis of colon with perforation: (2) Sinus tachycardia: PLAN: Plan Medical consult for sinus tachycardia?cycle cardiac enzymes, patient was given IV Lopressor x1 dose and will continue to monitor due to her pressure being a little on the low side 96/60.
[2022-02-22 21:59] LABS: Magnesium 2.1 mg/dL (1.6-2.6); Troponin-I HS 15 pg/mL (3.0-54.0)
[2022-02-23] VITALS (13 sets, daily range): BP systolic 98–114; BP diastolic 56–74; PULSE 73–161; RESP 15–20; TEMP 36.6–37.5; O2SAT 96–100
[2022-02-23] MEDS: 0.9% Normal Saline 1,000 ML 125 ML IV ×3 (00:04→16:07)
[2022-02-23 02:09] LABS: Absolute Lymphocyte Count 1.05 X10^3/uL (0.83-4.51); Absolute Neutrophil Count 7.8 X10^3/uL (2.0-7.7); Basophil# 0.01 X10^3/uL; Basophil% 0.1 % (0-1); Eosinophil# 0.03 X10^3/uL; Eosinophils% 0.3 % (0-5); Hematocrit 27.9 % (37-47); Hemoglobin 8.9 g/dL (12.0-15.0); Lymphocyte # 1.05 X10^3/ul (0.83-4.51); Mean Corp Hgb Conc 31.9 g/dL (32-36); Mean Corpuscular Hgb 28.9 pg (27.0-32.0); Mean Corpuscular Volume 90.6 fL (81-99); Mean Platelet Vol. 9.5 fl (6.2-12.0); Monocyte# 0.62 X10^3/uL; Monocyte% 6.5 % (0-10); NRBC Flagged by Analyzer 0 % (0-5); Neutrophil # 7.79 X10^3/uL (2.7-7.7); Neutrophil % 81.5 % (47-70); Platelet Count 252 K/mm3 (150-450); RBC Distribution Width CV 12.9 % (11.6-14.6); RBC Distribution Width SD 42.5 fl (35.1-43.9); Red Blood Count 3.08 M/mm3 (4.2-5.4); White Blood Count 9.6 K/mm3 (4.4-11.0)
[2022-02-23] MEDS: Ketorolac 15 MG/ML Vial IV (02:10)
[2022-02-23 02:30] LABS: Anion Gap 8 (5-15); BUN 9 mg/dL (7-18); BUN/Creat Ratio 17.2 RATIO (10-20); Calcium,Total 7.9 mg/dL (8.5-10.1); Chloride 111 mmol/L (98-107); Creatinine, Serum 0.52 mg/dL (0.55-1.02); EST Glomerular Filtration Rate 128 mL/min (>60); Est Glom Filt Rate - Afr Amer 154 mL/min (>60); Estimated Creatinine Clearance 102.18 ml/min; Glucose 79 mg/dL (74-106); Magnesium 2.2 mg/dL (1.6-2.6); Potassium 3.6 mmol/L (3.5-5.1); Sodium Level 139 mmol/L (136-145); Troponin-I HS 12 pg/mL (3.0-54.0)
--- NOTE | 2022-02-23 03:56 | NURSING ---
report called to [facility] from ICU.
--- NOTE | 2022-02-23 09:10 | PCM.PN.SRG ---
Subjective Subjective Patient was moved overnight to the PCU status bed for tachycardia. This morning the patient does not complaining of any worsening of abdominal pain and reports that she is not having much pain at all. She denies nausea or vomiting. No flatus yet. Denies heart palpitations or chest pain. Objective Data Objective Data Vital Signs: Vital Signs Temp Pulse Resp BP Pulse Ox O2 Del Method 98.1 F 97 20 H 98/62 96 Room Air 02/23/22 04:30 02/23/22 04:30 02/23/22 04:30 02/23/22 04:30 02/23/22 07:36 02/23/22 07:36 Oxygen Delivery Method Room Air Weight: 122 lb 8 oz Body Mass Index (BMI) 20.3 Intake & Output: Intake and Output for Last 24 Hours 02/21/22 02/22/22 02/23/22 23:59 23:59 23:59 Intake Total 3267.25 / 3267.25 4745.00 / 4745.00 1050 / 1050 Output Total 690 / 1090 1200 / 1200 Balance 2577.25 / 2177.25 3545.00 / 3545.00 1050 / 1050 Lab / Micro Data Result Diagrams: 02/23/22 01:09 02/23/22 01:09 Labs: Laboratory Results - last 24 hr 02/22/22 19:25: Troponin I High Sens 13 02/22/22 21:15: Magnesium 2.1, Troponin I High Sens 15 02/23/22 01:09: WBC 9.6, RBC 3.08 L, Hgb 8.9 L, Hct 27.9 L, MCV 90.6, MCH 28.9, MCHC 31.9 L D, RDW Std Deviation 42.5, RDW Coeff of Jocelin 12.9, Plt Count 252, MPV 9.5, Immature Gran % (Auto) 0.600, Neut % (Auto) 81.5 H, Lymph % (Auto) 11.0 L, [place] % (Auto) 6.5, Eos % (Auto) 0.3, Baso % (Auto) 0.1, Absolute Neuts (auto) 7.8 H, Absolute Lymphs (auto) 1.05, Nucleated RBC % 0 02/23/22 01:09: Sodium 139, Potassium 3.6, Chloride 111 H, Carbon Dioxide 20.0 L, Anion Gap 8, BUN 9, Creatinine 0.52 L, Estim Creat Clear Calc 102.18, Est GFR (MDRD) Af Amer 154, Est GFR (MDRD) Non-Af 128, BUN/Creatinine Ratio 17.2, Glucose 79, Calcium 7.9 L, Magnesium 2.2 02/23/22 01:09: Troponin I High Sens 12 Physical Exam Const oriented x3 and no apparent distress Resp normal respiratory effort Cardio regular rhythm GI soft to palpation and non-tender Assessment & Plan Assessment/Plan (1) Diverticulitis of colon with perforation: (2) Sinus tachycardia: PLAN: Plan Patient was moved to [facility] bed for SVT overnight. Patient was given some fluid. She is currently normal rate and rhythm but per the night nurse she kept flipping in and out of A. fib with RVR and SVT. Hospitalist was consulted and he took care of the cardiac portion of her care. As far as her abdomen the patient is still not passing flatus. She is minimally distended with no abdominal pain. Continue to await bowel function then I will resume a diet. Continue antibiotics for 1 more day. Indra Melendez MD Pager: [facility] [address] [place] [address], [address] [place] [address] Office:
[2022-02-23] MEDS: Enoxaparin 40 MG/0.4 ML Syringe SC (10:20)
[2022-02-23] MEDS: Morphine 2 MG/ML Syringe IV ×2 (13:52→20:26)
--- NOTE | 2022-02-23 15:25 | CASEMGMT ---
RN PABLO SWEEPER DRIVER CM to room to meet with patient for initial transition planning/care coordination assessment. RN PABLO introduced self and role at [facility].? Pt voices understanding and consents to assessment at this time.? Pt resting in bed in no distress at this time.? Pt is A/O at this time and answers all questions appropriately.?? Care providers, pharmacy, and demographics verified/updated at this time. PCP: Dr Monreal Specialists: none Preferred Pharmacy: [facility] Retail Insurance: No insurance Prescription Benefit:? None Living Will/HPOA:? Pt does not currently have LW/HCPOA LNOK: , Chinmay. SonJuan Living Arrangements: Lives w/ and 18-yr-old son in one-story home w/one step to enter. Independent. Transportation: Pt states drives self and states no transportation concerns at this time.? also drives. DME: ? Denies using any DME and denies needs.? HHC/SNF: No hx of either. Has done OP therapy only. No needs identified. Pt wishes to return home and states has no concerns with going home at time of discharge.? CM to follow for any discharge planning/needs.? Pt voices no concerns/needs at this time.? Advised pt to ask for CM if any questions/concerns/needs arise.? Voices understanding. PLAN: ?Home. SW to see for Self-pay No Rx coverage. Follow. Leslie LOWE RN, CM
--- NOTE | 2022-02-23 18:39 | ECHOD_ITS ---
Reason For Study: AFIB Procedure This was a 2D Doppler, Color Flow transthoracic echocardiogram. The study was technically difficult. Exam performed portable in ICU/CCU. Left Ventricle Normal LV size. Left ventricular systolic function is normal. The estimated ejection fraction is 65 %. No evidence for diastolic dysfunction. No regional wall motion abnormalities noted. Right Ventricle Normal RV size. Normal systolic function. Atria Normal left atrium. Normal right atrium. No doppler evidence for ASD. Mitral Valve There is no mitral annular calcification. Normal mitral valve. Mild (1+) mitral valve insufficiency. Tricuspid Valve Normal tricuspid valve. Moderate (2+) eccentric tricuspid valve insufficiency. Right ventricular systolic pressure estimated to be 37 mmHg. Aortic Valve The aortic valve is not well visualized. Pulmonic Valve The pulmonic valve is not well visualized. Great Vessels The aortic root is not well visualized. Pericardium/Pleural No pericardial effusion. MMode/2D Measurements & Calculations LAV(MOD-sp4): 28.7 ml LVAd ap4: 18.3 cm2 SV(MOD-sp4): 24.9 ml LVLd ap4: 6.2 cm EDV(MOD-sp4): 46.4 ml EDV(sp4-el): 45.9 ml LVAs ap4: 10.8 cm2 LVLs ap4: 4.5 cm ESV(MOD-sp4): 21.5 ml ESV(sp4-el): 21.9 ml EF(MOD-sp4): 53.7 % EF(sp4-el): 52.3 % SV(sp4-el): 24.0 ml LA A4 area: 13.1 cm2 LA dimension(2D): 3.8 cm RA A4 area: 12.8 cm2 Time Measurements MV dec time: 0.20 sec Doppler Measurements & Calculations MV E max crispin: 91.2 cm/sec Lat Peak E' Crispin: 13.7 cm/sec Med Peak E' Crispin: 11.8 cm/sec MV A max crispin: 53.8 cm/sec E/E' lat: 6.6 E/E' med: 7.7 MV E/A: 1.7 MV V2 max: 95.2 cm/sec MV dec slope: 462.2 cm/sec2 Ao V2 max: 141.1 cm/sec MV max P.6 mmHg Ao max P.0 mmHg MV V2 mean: 67.9 cm/sec Ao V2 mean: 100.6 cm/sec MV mean P.0 mmHg Ao mean P.6 mmHg MV V2 VTI: 22.6 cm Ao V2 VTI: 29.8 cm AV (velocity ratio): 0.76 LV V1 max: 108.5 cm/sec MR max crispin: 495.8 cm/sec TR max crispin: 293.0 cm/sec LV V1 max P.7 mmHg MR max P.3 mmHg TR max P.3 mmHg LV V1 mean P.5 mmHg LV V1 mean: 73.8 cm/sec LV V1 VTI: 22.6 cm ECHO/Echo Complete Interpretation Summary The study was technically difficult. Left ventricular systolic function is normal. The estimated ejection fraction is 65 %. Mild (1+) mitral valve insufficiency. Moderate (2+) eccentric tricuspid valve insufficiency. Right ventricular systolic pressure estimated to be 37 mmHg. No evidence for diastolic dysfunction. Ordering Physician: Francis Penaloza Referring Physician: Maria C Monreal M.D. Performed By: Mikayla Ogden RCS
--- NOTE | 2022-02-23 19:00 | PN.HOSP_ITS ---
Subjective Subjective She was seen and examined today, I reviewed her rhythm strips from last night, it appears that she was in A. fib with a rapid ventricular response, she converted to normal sinus rhythm afterwards. I have ordered an echocardiogram for tomorrow to check for any problems. Patient seems stable at this time. Objective Data Objective Data Vital Signs: Vital Signs Temp Pulse Resp BP Pulse Ox O2 Del Method 98.2 F 95 18 111/56 L 100 Room Air 02/23/22 14:00 02/23/22 16:00 02/23/22 14:00 02/23/22 14:00 02/23/22 14:00 02/23/22 14:00 Oxygen Delivery Method Room Air Weight: 55.565 kg Body Mass Index (BMI) 20.3 Intake & Output: Intake and Output for Last 24 Hours 02/21/22 02/22/22 02/23/22 23:59 23:59 23:59 Intake Total 3267.25 / 3267.25 4745.00 / 4745.00 2201.67 / 2201.67 Output Total 690 / 1090 1200 / 1200 Balance 2577.25 / 2177.25 3545.00 / 3545.00 2201.67 / 2201.67 Lab / Micro Data Result Diagrams: 02/24/22 03:50 02/24/22 03:50 Labs: Laboratory Results - last 24 hr 02/22/22 19:25: Troponin I High Sens 13 02/22/22 21:15: Magnesium 2.1, Troponin I High Sens 15 02/23/22 01:09: WBC 9.6, RBC 3.08 L, Hgb 8.9 L, Hct 27.9 L, MCV 90.6, MCH 28.9, MCHC 31.9 L D, RDW Std Deviation 42.5, RDW Coeff of Jocelin 12.9, Plt Count 252, MPV 9.5, Immature Gran % (Auto) 0.600, Neut % (Auto) 81.5 H, Lymph % (Auto) 11.0 L, [place] % (Auto) 6.5, Eos % (Auto) 0.3, Baso % (Auto) 0.1, Absolute Neuts (auto) 7.8 H, Absolute Lymphs (auto) 1.05, Nucleated RBC % 0 02/23/22 01:09: Sodium 139, Potassium 3.6, Chloride 111 H, Carbon Dioxide 20.0 L , Anion Gap 8, BUN 9, Creatinine 0.52 L, Estim Creat Clear Calc 102.18, Est GFR (MDRD) Af Amer 154, Est GFR (MDRD) Non-Af 128, BUN/Creatinine Ratio 17.2, Glucose 79, Calcium 7.9 L, Magnesium 2.2 02/23/22 01:09: Troponin I High Sens 12 Physical Exam Const alert, oriented x3, no apparent distress and healthy appearing General Appearance: cooperative, well kempt and well developed Orientation / Consciousness: awake, oriented to person, oriented to place and oriented to time HEENT normocephalic, head/scalp atraumatic and moist oral mucous membranes Eyes PERRL, EOMs intact bilaterally and conjunctivae normal Neck supple, no JVD and thyroid normal General: trachea midline Resp normal respiratory effort, no retractions, no use of accessory muscles and clear to auscultation bilaterally Auscultation: Negative for rales, rhonchi or wheezes Cardio regular rate, regular rhythm, S1 normal heart sound, S2 normal heart sound, no murmurs, no rub and no gallops Extremity normal to inspection and no clubbing, cyanosis or edema Skin no rashes or lesions noted General Skin Exam: no breakdown Neuro oriented x3, CN's II-XII intact bilaterally, moves all extremities, no focal motor deficits and no sensory deficits noted Sensorium / Orientation: awake, alert, oriented to person, oriented to place and oriented to time Speech: speech normal Psych affect normal Assessment & Plan Assessment/Plan (1) Diverticulitis of colon with perforation: PLAN: Plan 1. Postop brief atrial fibrillation-converted to sinus rhythm, again I will ordered an echocardiogram on the patient for tomorrow, patient is on no med ication at this time for atrial fib and I do not believe she needs anticoagulated. #2 status post diverticulitis of the colon with perforation-postop day #2 laparoscopic converted to open sigmoid colectomy with anastomosis-surgery is managing the patient's care at this time. Patient remains medically stable and is PCU status. Total clinical time spent by myself addressing the patient's medical issues,, reviewing all of her data, and collaborating with the patient's care team: 25 minutes Charges/Coding Visit Charges Inpatient E&M: 03741 Subs Hosp L1
[2022-02-24] VITALS (10 sets, daily range): BP systolic 111–125; BP diastolic 63–73; PULSE 77–101; RESP 16–24; TEMP 36.5–36.7; O2SAT 94–98
[2022-02-24] MEDS: 0.9% Normal Saline 1,000 ML 125 ML IV (00:07)
[2022-02-24 04:04] LABS: Absolute Neutrophil Count 9.8 X10^3/uL (2.0-7.7); Basophil# 0.02 X10^3/uL; Basophil% 0.2 % (0-1); Eosinophil# 0.07 X10^3/uL; Eosinophils% 0.6 % (0-5); Hematocrit 32.4 % (37-47); Lymphocyte % 10.7 % (19-41); Mean Corpuscular Volume 88.3 fL (81-99); Mean Platelet Vol. 9.1 fl (6.2-12.0); Monocyte# 0.79 X10^3/uL; Monocyte% 6.5 % (0-10); NRBC Flagged by Analyzer 0 % (0-5); Neutrophil # 9.83 X10^3/uL (2.7-7.7); Neutrophil % 81.3 % (47-70); Platelet Count 281 K/mm3 (150-450); RBC Distribution Width CV 13.1 % (11.6-14.6); RBC Distribution Width SD 42.5 fl (35.1-43.9); Red Blood Count 3.67 M/mm3 (4.2-5.4); White Blood Count 12.1 K/mm3 (4.4-11.0)
[2022-02-24 04:37] LABS: Anion Gap 11 (5-15); BUN 10 mg/dL (7-18); BUN/Creat Ratio 20.8 RATIO (10-20); Calcium,Total 7.6 mg/dL (8.5-10.1); Chloride 113 mmol/L (98-107); Creatinine, Serum 0.48 mg/dL (0.55-1.02); EST Glomerular Filtration Rate 141 mL/min (>60); Est Glom Filt Rate - Afr Amer 170 mL/min (>60); Glucose 75 mg/dL (74-106); Potassium 3.7 mmol/L (3.5-5.1); Sodium Level 141 mmol/L (136-145)
[2022-02-24] MEDS: Morphine 2 MG/ML Syringe IV (08:58)
[2022-02-24] MEDS: 0.9% Normal Saline 1,000 ML 40 ML IV (09:01)
[2022-02-24] MEDS: Enoxaparin 40 MG/0.4 ML Syringe SC (09:40)
--- NOTE | 2022-02-24 18:41 | PN.HOSP_ITS ---
Subjective Subjective Patient was seen and examined today, there have been no more episodes of atrial fibrillation, patient appears comfortable, echocardiogram today showed a normal EF with normal left and right atria. Right ventricular systolic pressure was slightly high, patient had moderate tricuspid insufficiency. Patient has no c omplaints of any chest discomfort or shortness of breath Objective Data Objective Data Vital Signs: Vital Signs Temp Pulse Resp BP Pulse Ox O2 Del Method 98.1 F 86 20 H 115/70 98 Room Air 02/24/22 14:23 02/24/22 16:00 02/24/22 14:23 02/24/22 14:23 02/24/22 14:23 02/24/22 14:23 Oxygen Delivery Method Room Air Weight: 55.565 kg Body Mass Index (BMI) 20.3 Intake & Output: Intake and Output for Last 24 Hours 02/22/22 02/23/22 02/24/22 23:59 23:59 23:59 Intake Total 4745.00 / 4745.00 2251.67 / 2251.67 2260 / 2260 Output Total 1200 / 1200 Balance 3545.00 / 3545.00 2251.67 / 2251.67 2260 / 2260 Lab / Micro Data Result Diagrams: 02/24/22 03:50 02/24/22 03:50 Labs: Laboratory Results - last 24 hr 02/24/22 03:50: WBC 12.1 H, RBC 3.67 L, Hgb 11.0 L, Hct 32.4 L, MCV 88.3, MCH 30.0, MCHC 34.0 D, RDW Std Deviation 42.5, RDW Coeff of Jocelin 13.1, Plt Count 281, MPV 9.1, Immature Gran % (Auto) 0.700, Neut % (Auto) 81.3 H, Lymph % (Auto) 10.7 L, [place] % (Auto) 6.5, Eos % (Auto) 0.6, Baso % (Auto) 0.2, Absolute Neuts (auto) 9.8 H, Absolute Lymphs (auto) 1.30, Nucleated RBC % 0 02/24/22 03:50: Sodium 141, Potassium 3.7, Chloride 113 H, Carbon Dioxide 17.0 L , Anion Gap 11, BUN 10, Creatinine 0.48 L, Estim Creat Clear Calc 110.70, Est GFR (MDRD) Af Amer 170, Est GFR (MDRD) Non-Af 141, BUN/Creatinine Ratio 20.8 H, Glucose 75, Calcium 7.6 L Radiography Diagnostic Testing: Radiology Impression Echocardiogram 02/23/22 18:39 Interpretation Summary The study was technically difficult. Left ventricular systolic function is normal. The estimated ejection fraction is 65 %. Mild (1+) mitral valve insufficiency. Moderate (2+) eccentric tricuspid valve insufficiency. Right ventricular systolic pressure estimated to be 37 mmHg. No evidence for diastolic dysfunction. Ordering Physician: Francis Penaloza Referring Physician: Maria C Monreal M.D. Performed By: Mikayla Ogden RCS Physical Exam Const alert, oriented x3, no apparent distress and healthy appearing General Appearance: cooperative, well kempt and well developed Orientation / Consciousness: awake, oriented to person, oriented to place and oriented to time HEENT normocephalic and moist oral mucous membranes Eyes PERRL, EOMs intact bilaterally and conjunctivae normal Neck supple, no JVD and thyroid normal General: trachea midline Resp normal respiratory effort, no retractions, no use of accessory muscles and clear to auscultation bilaterally Auscultation: Negative for rales, rhonchi or wheezes Cardio regular rate, regular rhythm, S1 normal heart sound, S2 normal heart sound, no murmurs, no rub and no gallops Extremity no clubbing, cyanosis or edema Skin no rashes or lesions noted General Skin Exam: no breakdown Neuro oriented x3, CN's II-XII intact bilaterally, moves all extremities, no focal motor deficits and no sensory deficits noted Sensorium / Orientation: awake, alert, oriented to person, oriented to place and oriented to time Speech: speech normal Psych affect normal Assessment & Plan Assessment/Plan (1) Diverticulitis of colon with perforation: PLAN: Plan 1. Postop brief atrial fibrillation-converted to sinus rhythm, patient's echocardiogram again today did not show any obvious reason why the patient would have gone into atrial fibrillation, again she is on no rate control medications at this time and I do not believe she needs anticoagulated. #2 status post diverticulitis of the colon with perforation-postop day #3 laparoscopic converted to open sigmoid colectomy with anastomosis-surgery is managing the patient's care at this time. Patient remains medically stable and is PCU status. Total clinical time spent by myself addressing the patient's medical issues,, reviewing all of her data, and collaborating with the patient's care team: 26 minutes Charges/Coding Visit Charges Inpatient E&M: 58346 [facility] L1
[2022-02-25 03:05] VITALS: BP 112/65; PULSE 76; RESP 16; TEMP 36.6; O2SAT 96
[2022-02-25 03:19] VITALS: BP 112/65; PULSE 76; RESP 16; TEMP 36.6; O2SAT 96
[2022-02-25 03:25] VITALS: PULSE 84
[2022-02-25 08:45] VITALS: BP 116/81; PULSE 86; RESP 22; RESP 29; TEMP 36.4; O2SAT 100
[2022-02-25] MEDS: Enoxaparin 40 MG/0.4 ML Syringe SC (09:59)
[2022-02-25] MEDS: 0.9% Normal Saline 1,000 ML 40 ML IV (09:59)
[2022-02-25] MEDS: 0.9% Saline Lock 10 ML Syringe IV (10:00)
[2022-02-25 10:25] LABS: Absolute Lymphocyte Count 1.54 X10^3/uL (0.83-4.51); Absolute Neutrophil Count 6.4 X10^3/uL (2.0-7.7); Basophil# 0.06 X10^3/uL; Basophil% 0.6 % (0-1); Eosinophil# 0.06 X10^3/uL; Eosinophils% 0.6 % (0-5); Hematocrit 33.3 % (37-47); Hemoglobin 10.9 g/dL (12.0-15.0); Lymphocyte # 1.54 X10^3/ul (0.83-4.51); Lymphocyte % 16.6 % (19-41); Mean Corp Hgb Conc 32.7 g/dL (32-36); Mean Corpuscular Hgb 28.8 pg (27.0-32.0); Mean Corpuscular Volume 87.9 fL (81-99); Mean Platelet Vol. 9.1 fl (6.2-12.0); Monocyte# 1.02 X10^3/uL; NRBC Flagged by Analyzer 0 % (0-5); Neutrophil # 6.36 X10^3/uL (2.7-7.7); Neutrophil % 68.5 % (47-70); Platelet Count 426 K/mm3 (150-450); RBC Distribution Width CV 13.3 % (11.6-14.6); RBC Distribution Width SD 42.9 fl (35.1-43.9); Red Blood Count 3.79 M/mm3 (4.2-5.4); White Blood Count 9.3 K/mm3 (4.4-11.0)
--- NOTE | 2022-02-25 11:17 | PN.SURG_ITS ---
Subjective Subjective Patient is doing well and reports passing flatus. Her abdominal pain is well controlled. Objective Data Objective Data Vital Signs: Vital Signs Temp Pulse Resp BP Pulse Ox O2 Del Method 97.5 F L 86 29 H 116/81 H 100 Room Air 02/25/22 08:45 02/25/22 08:45 02/25/22 08:45 02/25/22 08:45 02/25/22 08:45 02/25/22 08:45 Oxygen Delivery Method Room Air Weight: 122 lb 8 oz Body Mass Index (BMI) 20.3 Intake & Output: Intake and Output for Last 24 Hours 02/23/22 02/24/22 02/25/22 23:59 23:59 23:59 Intake Total 2251.67 / 2251.67 2260 / 2260 1328.67 / 1328.67 Balance 2251.67 / 2251.67 2260 / 2260 1328.67 / 1328.67 Lab / Micro Data Result Diagrams: 02/25/22 10:15 02/24/22 03:50 Labs: Laboratory Results - last 24 hr 02/25/22 10:15: WBC 9.3, RBC 3.79 L, Hgb 10.9 L, Hct 33.3 L, MCV 87.9, MCH 28.8, MCHC 32.7, RDW Std Deviation 42.9, RDW Coeff of Jocelin 13.3, Plt Count 426, MPV 9.1, Immature Gran % (Auto) 2.700 H, Neut % (Auto) 68.5, Lymph % (Auto) 16.6 L, Cross % (Auto) 11.0 H, Eos % (Auto) 0.6, Baso % (Auto) 0.6, Absolute Neuts (auto) 6.4, Absolute Lymphs (auto) 1.54, Nucleated RBC % 0 02/25/22 10:15: Sodium Cancelled, Potassium Cancelled, Chloride Cancelled, Carbon Dioxide Cancelled, Anion Gap Cancelled, BUN Cancelled, Creatinine Cancelled, Estim Creat Clear Calc Cancelled, Est GFR (MDRD) Af Amer Cancelled, Est GFR (MDRD) Non-Af Cancelled, BUN/Creatinine Ratio Cancelled, Glucose Cancelled, Calcium Cancelled Radiography Diagnostic Testing: Radiology Impression Echocardiogram 02/23/22 18:39 Interpretation Summary The study was technically difficult. Left ventricular systolic function is normal. The estimated ejection fraction is 65 %. Mild (1+) mitral valve insufficiency. Moderate (2+) eccentric tricuspid valve insufficiency. Right ventricular systolic pressure estimated to be 37 mmHg. No evidence for diastolic dysfunction. Ordering Physician: Francis Penaloza Referring Physician: Maria C Monreal M.D. Performed By: Mikayla Ogden RCS Physical Exam Const oriented x3 and no apparent distress Resp normal respiratory effort GI soft to palpation and non-tender Assessment & Plan Assessment/Plan (1) Diverticulitis of colon with perforation: PLAN: Patient began to pass flatus overnight. Patient has had no evidence of tachycardia overnight. I will begin clear liquid diet and transfer her out of the ICU to floor status. Begin oral pain control. White count is normal so I will stop antibiotics. Indra Melendez MD Pager: [facility] [address] [place] [address], [address] [place] [address] Office:
[2022-02-25 12:11] LABS: Anion Gap 13 (5-15); BUN 6 mg/dL (7-18); BUN/Creat Ratio 11.9 RATIO (10-20); Calcium,Total 8.1 mg/dL (8.5-10.1); Chloride 112 mmol/L (98-107); EST Glomerular Filtration Rate 133 mL/min (>60); Est Glom Filt Rate - Afr Amer 161 mL/min (>60); Estimated Creatinine Clearance 106.27 ml/min; Glucose 95 mg/dL (74-106); Potassium 3.4 mmol/L (3.5-5.1); Sodium Level 141 mmol/L (136-145)
[2022-02-25 14:12] VITALS: BP 111/74; PULSE 83; RESP 20; TEMP 36.7; O2SAT 96
--- NOTE | 2022-02-25 14:13 | CASEMGMT ---
SW met with patient. Introduced self and role at [facility]. SW explained to patient that SW was checking in with her since she does not have insurance. Patient told SW that she and her had insurance and offered it to their employees, but it ended up being worthless. Patient's had to have back surgery and they still paid $7,000-$10,000 out of pocket. Patient said they are able to pay for their medical care. She was appreciative of SW checking in with her and did accept the information on prescription assistance programs. Kiera Ochoa [employer]ITION MAKING MACHINE OPERATOR RICKY
[2022-02-25] MEDS: Acetaminophen 325 MG Tablet 650 MG PO ×2 (16:46→20:53)
[2022-02-25 22:00] VITALS: BP 108/71; PULSE 85; RESP 18; TEMP 36.6; O2SAT 98
[2022-02-26 03:05] VITALS: BP 122/67; PULSE 89; RESP 16; TEMP 36.8; O2SAT 96
[2022-02-26 03:34] LABS: Absolute Lymphocyte Count 1.91 X10^3/uL (0.83-4.51); Absolute Neutrophil Count 5.2 X10^3/uL (2.0-7.7); Basophil# 0.03 X10^3/uL; Basophil% 0.3 % (0-1); Eosinophil# 0.18 X10^3/uL; Eosinophils% 2.1 % (0-5); Hematocrit 29.5 % (37-47); Hemoglobin 10.1 g/dL (12.0-15.0); Lymphocyte # 1.91 X10^3/ul (0.83-4.51); Mean Corp Hgb Conc 34.2 g/dL (32-36); Mean Corpuscular Hgb 28.9 pg (27.0-32.0); Mean Corpuscular Volume 84.5 fL (81-99); Mean Platelet Vol. 8.5 fl (6.2-12.0); Monocyte# 1.09 X10^3/uL; Monocyte% 12.5 % (0-10); NRBC Flagged by Analyzer 0 % (0-5); Neutrophil # 5.18 X10^3/uL (2.7-7.7); Neutrophil % 59.6 % (47-70); Platelet Count 398 K/mm3 (150-450); RBC Distribution Width CV 13.1 % (11.6-14.6); RBC Distribution Width SD 40.3 fl (35.1-43.9); Red Blood Count 3.49 M/mm3 (4.2-5.4); White Blood Count 8.7 K/mm3 (4.4-11.0)
[2022-02-26 03:45] VITALS: BP 127/72; PULSE 77; RESP 18; TEMP 36.9; O2SAT 98
[2022-02-26 03:48] LABS: Anion Gap 12 (5-15); BUN 6 mg/dL (7-18); BUN/Creat Ratio 19.2 RATIO (10-20); Calcium,Total 7.7 mg/dL (8.5-10.1); Chloride 109 mmol/L (98-107); Creatinine, Serum 0.31 mg/dL (0.55-1.02); EST Glomerular Filtration Rate 231 mL/min (>60); Est Glom Filt Rate - Afr Amer 280 mL/min (>60); Glucose 97 mg/dL (74-106); Potassium 3.1 mmol/L (3.5-5.1); Sodium Level 140 mmol/L (136-145)
[2022-02-26] MEDS: Ondansetron 4 MG/2 ML Vial IV (05:56)
[2022-02-26 07:22] VITALS: PULSE 81
[2022-02-26 07:50] VITALS: BP 123/73; PULSE 79; RESP 16; TEMP 37; O2SAT 98
[2022-02-26] MEDS: Enoxaparin 40 MG/0.4 ML Syringe SC (09:10)
[2022-02-26] MEDS: 0.9% Saline Lock 10 ML Syringe IV (09:11)
--- NOTE | 2022-02-26 10:13 | PCM.DC.SUM ---
Providers Date of Admission: 02/21/22 Primary Care Physician: Dr. Maria C Monreal MD Consultations 02/22/22 19:05 Consult: Hospitalist Routine Consulting Provider: Keagan Escudero Reason for Consult: tachycardia EMERGENT Consult: No MD Notified: Yes Date Notified: 02/22/22 Time Notified: 19:07 Method of Notification: Text Reason For Visit: LAPROSCOPIC SIGMOID COLECTOMY Diagnosis Discharge Diagnosis (1) Diverticulitis of colon with perforation: Status: Acute Code(s): K57.20 - Diverticulitis of large intestine with perforation and abscess without bleeding Plan: Patient began to pass flatus overnight. Patient has had no evidence of tachycardia overnight. I will begin clear liquid diet and transfer her out of the ICU to floor status. Begin oral pain control. White count is normal so I will stop antibiotics. Indra Melendez MD Pager: [facility] [address] [place] [address], [address] [place] [address] Office: Medications at Discharge Home Medications acetaminophen 325 mg tablet (Tylenol) 650 mg PO Q4H PRN PRN Pain 1-10 Or Fever #0 tabs 02/26/22 Hospital Course Operations colectomy Summary of Care Provided Hospital Course: Patient presented with perforated diverticulitis of the sigmoid colon. She is immediately taken for surgery for laparotomy with sigmoid colectomy with reanastomosis. Patient tolerated the procedure well and was brought to the floor postoperatively. The next evening she went into A. fib with RVR and was transferred to the ICU for management of this and the hospitalist was consulted. This was controlled with beta-blockers and fluid resuscitation of the and then she was transferred back to the floor. After day 4 she started passing flatus and clear liquid diet was initiated. The following day she tolerated clears and she was advanced to transitional diet and then discharged home. Physical Exam Const oriented x3 Resp normal respiratory effort GI soft to palpation and non-tender Weight / BMI Weight Weight: 122 lb 8 oz Body Mass Index (BMI) 20.3 ABG / Lab / Microbiology Data Result Diagrams: 02/26/22 03:25 02/26/22 03:25 Laboratory: Laboratory Results - last 24 hr 02/25/22 10:15: WBC 9.3, RBC 3.79 L, Hgb 10.9 L, Hct 33.3 L, MCV 87.9, MCH 28.8, MCHC 32.7, RDW Std Deviation 42.9, RDW Coeff of Jocelin 13.3, Plt Count 426, MPV 9.1, Immature Gran % (Auto) 2.700 H, Neut % (Auto) 68.5, Lymph % (Auto) 16.6 L, [place] % (Auto) 11.0 H, Eos % (Auto) 0.6, Baso % (Auto) 0.6, Absolute Neuts (auto) 6.4, Absolute Lymphs (auto) 1.54, Nucleated RBC % 0 02/25/22 10:15: Sodium Cancelled, Potassium Cancelled, Chloride Cancelled, Carbon Dioxide Cancelled, Anion Gap Cancelled, BUN Cancelled, Creatinine Cancelled, Estim Creat Clear Calc Cancelled, Est GFR (MDRD) Af Amer Cancelled, Est GFR (MDRD) Non-Af Cancelled, BUN/Creatinine Ratio Cancelled, Glucose Cancelled, Calcium Cancelled 02/25/22 11:45: Sodium 141, Potassium 3.4 L, Chloride 112 H, Carbon Dioxide 16.0 L, Anion Gap 13, BUN 6 L, Creatinine 0.50 L, Estim Creat Clear Calc 106.27, Est GFR (MDRD) Af Amer 161, Est GFR (MDRD) Non-Af 133, BUN/Creatinine Ratio 11.9, Glucose 95, Calcium 8.1 L 02/26/22 03:25: WBC 8.7, RBC 3.49 L, Hgb 10.1 L, Hct 29.5 L, MCV 84.5, MCH 28.9, MCHC 34.2, RDW Std Deviation 40.3, RDW Coeff of Jocelin 13.1, Plt Count 398, MPV 8.5, Immature Gran % (Auto) 3.500 H, Neut % (Auto) 59.6, Lymph % (Auto) 22.0, [place] % (Auto) 12.5 H, Eos % (Auto) 2.1, Baso % (Auto) 0.3, Absolute Neuts (auto) 5.2, Absolute Lymphs (auto) 1.91, Nucleated RBC % 0 02/26/22 03:25: Sodium 140, Potassium 3.1 L, Chloride 109 H, Carbon Dioxide 19.0 L, Anion Gap 12, BUN 6 L, Creatinine 0.31 L, Estim Creat Clear Calc 171.40, Est GFR (MDRD) Af Amer 280, Est GFR (MDRD) Non-Af 231, BUN/Creatinine Ratio 19.2, Glucose 97, Calcium 7.7 L D/C Instructions Discharge Diet: Light diet - advance as tolerated Discharge Activity: May Not Drive (while you are taking narcotic pain medications) and May Shower May resume sexual activity in: No Restrictions Lifting Restrictions: 20lbs for 4 weeks Additional Activity Instructions: Be aware that pain medications may cause nausea. You should typically eat light foods as you take your pain medications. Pain medications may also cause constipation. If you have difficulty with this please discuss with your doctor. Call your doctor if your incision/area has: Continuous Slow Oozing, Sudden Increased Bleeding, Increased Pain/ Swelling, Increased Redness, Foul Smelling Discharge and Swelling at the incision site Call your doctor if you observe: Fever of 101 or Higher, Inability to have a bowel movement and Uncontrolled pain Change Dressing in: daily Cleanse incision/area with: Soap & Water Please Follow Up With: Indra Melendez MD When: Please call to schedule 1 week follow up appointment. [phone] Meaningful Use Info Meaningful Use Diagnoses (Choose all that apply): None applicable Discharge Plan Admission Admit Date/Time: 02/21/22 13:20 Attending Provider: Indra Melendez Primary Care Provider: Maria C Monreal Consulting Providers: Edouard Nascimento Paul Discharge Orders/Prescriptions Prescriptions: New acetaminophen [Tylenol] 325 mg Tablet 650 mg PO Q4H PRN PRN (Reason: Pain 1-10 Or Fever) Qty: 0 0RF Referrals / Follow Up: Maria C Monreal MD [Primary Care Provider] - Disposition Disposition (needs filled in before D/C Order can be placed): Home, Self Care
--- NOTE | 2022-02-26 10:53 | CASEMGMT ---
Pt 6 clicks=23, only med ordered upon dc is tylenol.
[2022-02-26 11:49] VITALS: BP 112/69; PULSE 87; RESP 16; TEMP 36.9; O2SAT 97
[2022-02-26 14:33] VITALS: BP 121/72; PULSE 94; RESP 96; TEMP 36.7
[2022-02-26] MEDS: Acetaminophen 325 MG Tablet 650 MG PO (16:22)
== END 2022-02-26 17:53 | disposition home or self-care (01) | DRG 330 ==
LOC: ED 09:00 → ACINP 09:13 → ED 10:52 → MS3 11:17 → ICU 02-23 06:10 → MS3 02-23 16:26 → ICU 02-23 16:26 → MS2 02-26 10:18 → ICU 02-26 13:06 → MS2 02-26 13:06
PROVIDERS: Admitting Provider Surgery; Emergency Provider Emergency Medicine; PCP Internal Medicine; Visit Provider Surgery
PROC: 0DTN0ZZ Resection of Sigmoid Colon, Open Approach (ICD-10-PCS; CPT 44204; principal; 2022-02-21 10:00)
DX: K57.20 Diverticulitis of large intestine with perforation and abscess without bleeding (principal); I47.1 Supraventricular tachycardia; I48.91 Unspecified atrial fibrillation; I07.1 Rheumatic tricuspid insufficiency; Z53.31 Laparoscopic surgical procedure converted to open procedure; R00.0 Tachycardia, unspecified
CPT/HCPCS: 36415; 74177; 80048; 80053; 83605; 83735; 84100; 84484; 85025; 88304; 88307; 93005; 93306; 99252; 99284; J7030; J7050; J7120; Q9967; A4216; G0463; J2405

== ENCOUNTER → 2022-03-04 | Outpatient (CLI) | payer SELFPAY | END | disposition home or self-care (01) | LOC: PAVLAB 08:57 | PROVIDERS: PCP Nurse Practitioner Family; Referring Provider Surgery; Visit Provider Surgery | DX: R19.7 Diarrhea, unspecified (principal) | CPT/HCPCS: 87493 ==

== ENCOUNTER → 2024-09-21 | Outpatient (CLI) | payer SELFPAY ==
--- NOTE | 2024-09-21 08:00 | LES_PTH ---
PATIENT: EHLGA ALMANZA LOC: [facility] U#:[id number] AGE/SX: 63/F ROOM: RE09/21/[address]: Dr. Simon Lu MD : 1960 BED: DIS: 09/21/2024 SPEC #: [id number] RECD: 09/21/24 09:19 STATUS: MAYA SANDRO #: [id number] ESTRELLA: 09/21/24 08:[address]: Simon Lu DEPT: SURGICAL PATHOLOGY RECD BY: Nomi Watson ENTERED: 09/21/24 10:54 SP TYPE: Lesion OTHR DR: Sheila Stephenson, [employer]AS[employer] SEALER-C Tissues: A - Skin of arm Procedures: Surgery Specimen Level IV HEADER OPERATION: Excision of left upper arm lesion PRE-OP DIAGNOSIS: Left upper arm lesion TISSUE SUBMITTED: A- Left upper arm lesion MICROSCOPIC DIAGNOSIS A. Skin, left upper arm, lesion, excision: - Foreign body granuloma with acute inflammation. MICROSCOPIC DESCRIPTION Slides are reviewed. GROSS DESCRIPTION A. Received in formalin labeled with the patient's name and date of . Designated as L upper arm lesion is a 3.0 x 1.3 cm dudley skin ellipse, devoid of orientation and excised to a depth ranging from 0.4 cm to 0.9 cm. The peripheral margins are inked green and the deep margin is inked black. Centrally on the epidermal surface is a 0.8 x 0.7 x 0.3 cm pink-red, raised, soft lesion with irregular borders, located <0.1 cm from the nearest peripheral edge. Sectioning reveals soft, purulent cut surfaces of the epidermal lesion which is located 0.4 cm from the deep margin. There is a red-brown, apparent calcification underlying the epidermal lesion that abuts the deep margin; this area of calcification appears to be separate from the epidermal lesion. The specimen is entirely submitted in 5 cassettes, following decalcification of cassettes A2-A3. [place] 09/21/2024 CPT:[id number]
== END | disposition home or self-care (01) ==
LOC: LABSPEC 10:21
PROVIDERS: PCP Nurse Practitioner Family; Referring Provider Surgery; Visit Provider Surgery
DX: L98.9 Disorder of the skin and subcutaneous tissue, unspecified (principal)
CPT/HCPCS: 88305